=== PATIENT | male | born 2000 | race Caucasian/White ===

== ENCOUNTER 2022-02-01 17:22 | Emergency (ER) | payer SELFPAY ==
[2022-02-01 18:54] LABS: CORONAVIRUS COVID-19 NAA NEGATIVE (NEGATIVE); INFLUENZA A NAA NEGATIVE (NEGATIVE); INFLUENZA B NAA NEGATIVE (NEGATIVE)
[2022-02-01] MEDS ORDERED: Albuterol/Ipratropium 3.0-0.5 MG/3 ML Neb Soln NEB ONE (19:13)
[2022-02-01] MEDS ORDERED: Azithromycin 250 MG Tab PO STA (19:46)
[2022-02-01] MEDS ORDERED: predniSONE 20 MG Tab PO ONE (19:53)
== END 2022-02-01 20:12 | disposition home or self-care (01) ==
LOC: MW.ED 17:22
DX: J18.9 Pneumonia, unspecified organism (principal); J20.9 Acute bronchitis, unspecified; F17.210 Nicotine dependence, cigarettes, uncomplicated; Z20.822 Contact with and (suspected) exposure to COVID-19
CPT/HCPCS: 0240U; 71045; 99284; A9270; J7620-GY